=== PATIENT | female | born 1975 | race Two or more races ===

== ENCOUNTER 2018-07-11 11:16 | Inpatient (IN) | payer SELFPAY ==
[2018-07-11] MEDS ORDERED: NA CHLORIDE 0.9% 1,000 ML ONE (12:54)
[2018-07-11 13:10] LABS: Absolute Lymphocytes (CBC) 0.4 K/uL (0.7-4.9); Absolute Monocytes 0.9 K/uL (0.1-1.3); Absolute Neutrophil 10.4 K/uL (1.8-8.0); Basophils % 0.1 % (0-1.3); Hematocrit 39.2 % (36.0-45.0); Lymphocytes % 3.6 % (15.3-44.8); MPV 9.3 fL (7.6-11.3); Monocytes % 7.4 % (3.3-12.3); RBC Red Blood Cell Count 4.34 M/uL (3.86-4.86)
[2018-07-11 13:18] LABS: Urine Blood 2+ (NEG); Urine Glucose NEGATIVE (NEG); Urine Protein 1+ (NEG); Urine Specific Gravity 1.015 (1.005-1.030)
[2018-07-11 13:27] LABS: BUN Blood Urea Nitrogen 7 mg/dL (7-18); Bicarbonate 22 mmol/L (21-32); Glucose Level 101 mg/dL (74-106); Potassium 3.9 mmol/L (3.5-5.1); Sodium Level 137 mmol/L (136-145)
--- NOTE | 2018-07-11 14:26 | RAD REPORT ---
EXAM DESCRIPTION: CTAbdomen Pelvis W Contrast - 07/11/2018 2:15 pm CLINICAL HISTORY: Abdominal pain. iv contrast only;Abd pain COMPARISON: No comparisons TECHNIQUE: Biphasic CT imaging of the abdomen and pelvis was performed with 100 ml non-ionic IV cont rast. All CT scans are performed using dose optimization technique as appropriate and may include automated exposure control or mA/KV adjustment according to patient size. FINDINGS: The lung bases are clear. The liver, spleen, pancreas, adrenal glands and left kidney are within normal limits. The right kidne y is enlarged with multiple areas of diminished density in the cortex compatible with pyelonephritis. Mild perinephric fluid is seen without abscess. No bowel obstruction, free air, or abscess. Mild free fluid is seen in the pelvis. Appendectomy. No evidence of significant lymphadenopathy. No suspicious bony findings. IMPRESSION: Right pyelonephritis without abscess.
--- NOTE | 2018-07-11 14:43 | ER ---
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 Also c/o SOB and fever x 2 days, seen at urgent care yesterday, started on Augmentin. Transition of care: patient was not received from another setting of care. Onset of symptoms was July 11, 2018. Risk Assessment: Do you want to hurt yourself or someone else? Patient reports no desire to harm self or others. Care prior to arrival: None. 11:27 Method Of Arrival: Ambulatory 11:27 Acuity: TRAMAINE 3 12:45 Initial Sepsis Screen: Does the patient meet any 2 criteria? No. Patient's initial sg sepsis screen is negative. Does the patient have a suspected source of infection? Yes: Dysuria/Frequency/Urgency/UTI. Historical: - Allergies: 14:47 No Known Allergies; sg - Home Meds: 14:47 None [Active]; sg - PMHx: 14:47 None; sg - PSHx: 14:47 None; sg - Immunization history:: Adult Immunizations up to date. - Social history:: Smoking status: Patient/guardian denies using tobacco. - Ebola Screening: : No symptoms or risks identified at this time. Screenin:45 Abuse screen: Denies threats or abuse. Denies injuries from another. Nutritional sg screening: No deficits noted. Tuberculosis screening: No symptoms or risk factors identified. Never had TB. Fall Risk None identified. Assessment: 12:45 General: Appears in no apparent distress. well groomed, well developed, well nourished, sg Behavior is calm, cooperative, appropriate for age. Pain: Complains of pain in left mid back, right mid back and suprapubic area. Neuro: Level of Consciousness is awake, alert, obeys commands, Oriented to person, place, time, Brand Ambassador are equal bilaterally Moves all extremities. Full function Gait is steady, Speech is normal, Facial symmetry appears normal, Pupils are PERRLA. Cardiovascular: Capillary refill is brisk in bilateral fingers Patient's skin is warm and dry. Chest pain is denied. Respiratory: Airway is patent Respiratory effort is even, unlabored, Respiratory pattern is regular, symmetrical. GI: No signs and/or symptoms were reported involving the gastrointestinal system. : No signs and/or symptoms were reported regarding the genitourinary system. EENT: No signs and/or symptoms were reported regarding the EENT system. Derm: Skin is pink, warm \T\ dry. Musculoskeletal: No signs and/or symptoms reported regarding the musculoskeletal system. 13:40 Reassessment: Patient appears in no apparent distress at this time. Patient and/or sg family updated on plan of care and expected duration. Pain level reassessed. Patient is alert, oriented x 3, equal unlabored respirations, skin warm/dry/pink. 14:58 Reassessment: Patient appears in no apparent distress at this time. Patient and/or sg family updated on plan of care and expected duration. Pain level reassessed. Patient is alert, oriented x 3, equal unlabored respirations, skin warm/dry/pink. Vital Signs: 11:29 BP 91 / 80; Pulse 116; Resp 20; Temp 98.9; Pulse Ox 100% on R/A; Pain 6/10; hb 14:57 BP 97 / 69; Pulse 80; Resp 17; Temp 98.5; Pulse Ox 99% on R/A; Pain 6/10; sg 15:18 BP 101 / 70; Pulse 85; Resp 17; Pulse Ox 100% ; sg ED Course: 11:21 Patient arrived in ED. mr 11:29 Triage completed. hb 11:30 Arm band placed on. hb 12:09 Colette Armstrong FNP-C is PHCP. kb 12:09 Martin Arana MD is Attending Physician. kb 12:38 Babs Blount, DIONE is Primary Nurse. tw2 12:52 Initial lab(s) drawn, by me, sent to lab. Inserted saline lock: 22 gauge in left sg antecubital area, using aseptic technique. Blood collected. 13:00 Gautam Peraza, RN is Primary Nurse. sg 13:00 Patient has correct armband on for positive identification. Placed in gown. Bed in low sg position. Pulse ox on. NIBP on. 14:14 CT Abd/Pelvis - W/Contrast In Process Unspecified. EDMS 14:14 CT completed. Patient tolerated procedure well. Patient moved back from CT. vr 14:39 Timmy Ko MD is Hospitalizing Provider. kb 15:53 No provider procedures requiring assistance completed. Patient admitted, IV remains in sg place. intact, bleeding controlled, No redness/swelling at site. Pressure dressing applied. Administered Medications: 13:00 Drug: NS 0.9% 1000 ml Route: IV; Rate: 1000 ml; Site: left antecubital; sg 14:00 Follow up: Response: No adverse reaction; IV Status: Completed infusion; IV Intake: sg 1000ml 15:10 Drug: Rocephin 1 grams Route: IV; Rate: calculated rate; Site: left antecubital; sg 15:13 CANCELLED (Duplicate Order): Rocephin 1 grams IV at calculated rate once; Given slow IV sg push per pharmacy instructions Intake: 14:00 IV: 1000ml; Total: 1000ml. sg Outcome: 14:43 Decision to Hospitalize by Provider. kb 16:00 Admitted to Med/surg accompanied by tech, family with patient, via wheelchair, room sg 412, with chart, Report called to DIONE Wong 16:00 Condition: stable 16:00 Instructed on discharge instructions, the need for admit, safety practices, Demonstrated understanding of instructions. 16:29 Patient left the ED. sg Signatures: Dispatcher [employer] EDCT Colette Armstrong, GAS PUMPER-C GAS PUMPER-Gautam Greenberg RN RN Ward, Janett mr LorenzoJanee Elisabet Conley RN RN Babs Blount RN RN tw2 Corrections: (The following items were deleted from the chart) 11:30 11:29 BP 91 / 80; Pulse 116bpm; Resp 20bpm; Pulse Ox 100% RA; Temp 98.9F; Pain 3/10; hb hb 14:47 11:30 Allergies: No Known Allergies; hb sg
--- NOTE | 2018-07-11 14:43 | EDPHYS ---
Physician Documentation [facility] Name: Lizy George Age: 43 yrs Sex: Female : 1975 Arrival Date: 07/11/2018 Time: 11:21 Bed 16 Private MD: ED Physician Martin Arana HPI: 07/11 12:56 This 43 yrs old Black Female presents to ER via Ambulatory with complaints of Fever, kb Urinary Problem. 12:56 The patient presents with flank pain, on the right, urinary symptoms, dysuria. Onset: kb The symptoms/episode began/occurred 11 day(s) ago. Modifying factors: The symptoms are alleviated by nothing, the symptoms are aggravated by urinating. Associated signs and symptoms: Pertinent positives: dysuria, fever. Severity of symptoms: At their worst the symptoms were moderate, in the emergency department the symptoms are unchanged. The patient has not experienced similar symptoms in the past. The patient has not recently seen a physician. Pt reports she started having a bladder infection on 06/30, went to clinic on 07/04 and was given bactrim. STarted running fever and having chills, was not feeling any better so she went back to clinic yesterday and was given Augmentin. States she threw up the Augmentin today so she was concerned that she was taking too many medications. STates she takes other medication for GERD and ulcers so she doesn't know if she should be taking antibiotic pills on top of it. Came in because she thinks she needs IV antibiotics since she threw up the pills. States she has also been having intermittent pain to right flank.. Historical: - Allergies: 14:47 No Known Allergies; sg - Home Meds: 14:47 None [Active]; sg - PMHx: 14:47 None; sg - PSHx: 14:47 None; sg - Immunization history:: Adult Immunizations up to date. - Social history:: Smoking status: Patient/guardian denies using tobacco. - Ebola Screening: : No symptoms or risks identified at this time. ROS: 12:55 ENT: Negative for injury, pain, and discharge, Neck: Negative for injury, pain, and kb swelling, Cardiovascular: Negative for chest pain, palpitations, and edema, Respiratory: Negative for shortness of breath, cough, wheezing, and pleuritic chest pain, Abdomen/GI: Negative for abdominal pain, nausea, vomiting, diarrhea, and constipation, MS/Extremity: Negative for injury and deformity, Skin: Negative for injury, rash, and discoloration, Neuro: Negative for headache, weakness, numbness, tingling, and seizure. 12:55 Constitutional: Positive for chills, fever, Negative for body aches, fatigue, malaise, poor PO intake, weight loss. 12:55 : Positive for urinary symptoms, flank pain, burning with urination. Exam: 12:55 Constitutional: This is a well developed, well nourished patient who is awake, alert, kb and in no acute distress. Head/Face: Normocephalic, atraumatic. ENT: Nares patent. No nasal discharge, no septal abnormalities noted. Tympanic membranes are normal and external auditory canals are clear. Oropharynx with no redness, swelling, or masses, exudates, or evidence of obstruction, uvula midline. Mucous membranes moist. Neck: Trachea midline, no thyromegaly or masses palpated, and no cervical lymphadenopathy. Supple, full range of motion without nuchal rigidity, or vertebral point tenderness. No Meningismus. Chest/axilla: Normal chest wall appearance and motion. Nontender with no deformity. No lesions are appreciated. Cardiovascular: Regular rate and rhythm with a normal S1 and S2. No gallops, murmurs, or rubs. Normal PMI, no JVD. No pulse deficits. Respiratory: Lungs have equal breath sounds bilaterally, clear to auscultation and percussion. No rales, rhonchi or wheezes noted. No increased work of breathing, no retractions or nasal flaring. Abdomen/GI: Soft, non-tender, with normal bowel sounds. No distension or tympany. No guarding or rebound. No evidence of tenderness throughout. Skin: Warm, dry with normal turgor. Normal color with no rashes, no lesions, and no evidence of cellulitis. MS/ Extremity: Pulses equal, no cyanosis. Neurovascular intact. Full, normal range of motion. Neuro: Awake and alert, GCS 15, oriented to person, place, time, and situation. Cranial nerves II-XII grossly intact. Motor strength 5/5 in all extremities. Sensory grossly intact. Cerebellar exam normal. Normal gait. 14:34 Back: CVA tenderness, that is moderate, is noted on the right. kb Vital Signs: 11:29 BP 91 / 80; Pulse 116; Resp 20; Temp 98.9; Pulse Ox 100% on R/A; Pain 6/10; hb 14:57 BP 97 / 69; Pulse 80; Resp 17; Temp 98.5; Pulse Ox 99% on R/A; Pain 6/10; sg 15:18 BP 101 / 70; Pulse 85; Resp 17; Pulse Ox 100% ; sg MDM: 12:12 Patient medically screened. 12:56 Data reviewed: vital signs, nurses notes. Data interpreted: Pulse oximetry: on room air kb is 100 %. Interpretation: normal. 14:34 Counseling: I had a detailed discussion with the patient and/or guardian regarding: the kb historical points, exam findings, and any diagnostic results supporting the discharge/admit diagnosis, lab results, radiology results, the need for further work-up and treatment in the hospital. 14:38 Physician consultation: Timmy Ko MD was contacted at 14:38, regarding admission, to the medical/surgical unit. patient's condition, and will see patient in ED, shortly. 07/11 12:29 Order name: Urine Dipstick--Ancillary (enter results); Complete Time: 13:20 em1 07/11 12:29 Order name: Urine --Ancillary (enter results); Complete Time: 13:20 em1 07/11 12:31 Order name: CBC with Diff; Complete Time: 13:12 kb 07/11 12:31 Order name: Basic Metabolic Panel; Complete Time: 13:31 07/11 12:31 Order name: Urine Culture 07/11 13:32 Order name: CT Abd/Pelvis - W/Contrast; Complete Time: 14:29 kb 07/11 12:29 Order name: Urine Dipstick-Ancillary (obtain specimen); Complete Time: 12:30 em1 07/11 12:29 Order name: Urine Test (obtain specimen); Complete Time: 12:29 em1 Administered Medications: 13:00 Drug: NS 0.9% 1000 ml Route: IV; Rate: 1000 ml; Site: left antecubital; sg 14:00 Follow up: Response: No adverse reaction; IV Status: Completed infusion; IV Intake: sg 1000ml 15:10 Drug: Rocephin 1 grams Route: IV; Rate: calculated rate; Site: left antecubital; sg 15:13 CANCELLED (Duplicate Order): Rocephin 1 grams IV at calculated rate once; Given slow IV sg push per pharmacy instructions Disposition: 07/12 06:35 Co-signature as Attending Physician, Martin Arana MD I agree with the assessment and kdr plan of care. Disposition: 07/11/18 14:43 Hospitalization ordered by Timmy Ko for Inpatient Admission. Preliminary diagnosis is Tubulo-interstitial nephritis, not specified as acute or chronic - failed outpatient therapy . - Bed requested for Telemetry/MedSurg (Inpatient). - Status is Inpatient Admission. sg - Condition is Stable. - Problem is new. - Symptoms are unchanged. UTI on Admission? Yes Signatures: Dispatcher [employer] EDMS Colette Armstrong FNP-C FNP-Gautam Greenberg RN RN Martin Moctezuma MD MD kdr Martinez, Eric 1 Elisabet Conley RN RN Corrections: (The following items were deleted from the chart) 07/11 14:34 12:55 Constitutional: This is a well developed, well nourished patient who is awake, kb alert, and in no acute distress. Head/Face: Normocephalic, atraumatic. ENT: Nares patent. No nasal discharge, no septal abnormalities noted. Tympanic membranes are normal and external auditory canals are clear. Oropharynx with no redness, swelling, or masses, exudates, or evidence of obstruction, uvula midline. Mucous membranes moist. Neck: Trachea midline, no thyromegaly or masses palpated, and no cervical lymphadenopathy. Supple, full range of motion without nuchal rigidity, or vertebral point tenderness. No Meningismus. Chest/axilla: Normal chest wall appearance and motion. Nontender with no deformity. No lesions are appreciated. Cardiovascular: Regular rate and rhythm with a normal S1 and S2. No gallops, murmurs, or rubs. Normal PMI, no JVD. No pulse deficits. Respiratory: Lungs have equal breath sounds bilaterally, clear to auscultation and percussion. No rales, rhonchi or wheezes noted. No increased work of breathing, no retractions or nasal flaring. Abdomen/GI: Soft, non-tender, with normal bowel sounds. No distension or tympany. No guarding or rebound. No evidence of tenderness throughout. Skin: Warm, dry with normal turgor. Normal color with no rashes, no lesions, and no evidence of cellulitis. MS/ Extremity: Pulses equal, no cyanosis. Neurovascular intact. Full, normal range of motion. Neuro: Awake and alert, GCS 15, oriented to person, place, time, and situation. Cranial nerves II-XII grossly intact. Motor strength 5/5 in all extremities. Sensory grossly intact. Cerebellar exam normal. Normal gait. kb 14:38 14:34 Physician consultation: Cassie Mckinnon MD was contacted at 14:34, regarding kb admission, to the medical/surgical unit. patient's condition, and will see patient in ED, shortly, kb 14:47 11:30 Allergies: No Known Allergies; hb sg 15:13 15:12 Rocephin 1 grams IV at calculated rate once; Given slow IV push per pharmacy sg instructions ordered. sg 15:35 14:43 Hospitalization Ordered by Timmy Ko MD for Inpatient Admission. Preliminary em1 diagnosis is Tubulo-interstitial nephritis, not specified as acute or chronic - failed outpatient therapy . Bed requested for Telemetry/MedSurg (Inpatient). Status is Inpatient Admission. Condition is Stable. Problem is new. Symptoms are unchanged. UTI on Admission? Yes. kb 16:29 15:35 07/11/2018 14:43 Hospitalization Ordered by Timmy Ko MD for Inpatient sg Admission. Preliminary diagnosis is Tubulo-interstitial nephritis, not specified as acute or chronic - failed outpatient therapy . Bed requested for Telemetry/MedSurg (Inpatient). Status is Inpatient Admission. Condition is Stable. Problem is new. Symptoms are unchanged. UTI on Admission? Yes. em1
[2018-07-11] MEDS ORDERED: CEFTRIAXONE/SWI 1gm 1 GM/10 ML SYR ONE (15:14)
--- NOTE | 2018-07-11 17:28 | P.HP ---
Certification for Inpatient Patient admitted to: Inpatient Practitioner: I am a practitioner with admitting privileges, knowledge of patient current condition, hospital course, and medical plan of care. Services: Services provided to patient in accordance with Admission requirements found in Title 42 Section 412.3 of the Code of Federal Regulations Patient History Date of Service: 07/11/18 Reason for admission: Dysuria, right flank pain History of Present Illness: This is a 43-year-old healthy female admitted for right flank pain and dysuria. Per patient, symptoms of dysuria and right flank pain started about 11 days ago. She went to the clinic and received a course of Bactrim. Her symptoms seemed to have progressively worsened, she returned to the clinic and was started on Augmentin. Per patient, symptoms were still worsening and she started with vomiting, which is what brought her to the ER. She has been having right flank pain, dysurea, fevers and chills. Patient also has a vague history of a stomach ulcer and gastroesophageal reflux disease for which she takes Ranatidine, Mosapulin, and Famotidine as she needs it. In the ER, she was found to have right pyelonephritis on CT scan. She remained hemodynamically stable. At the time of my exam, she was alert oriented x3, in no acute distress and hemodynamically stable. She will be admitted for IV antibiotics failed outpatient treatment Allergies No Known Allergies Allergy (Unverified 07/11/18 17:03) Review of Systems 10-point ROS is otherwise unremarkable Physical Examination - Vital Signs Temperature: 98.5 F Blood Pressure: 101/70 Pulse: 85 Respirations: 17 - Physical Exam General: Alert, In no apparent distress, Oriented x3 HEENT: Atraumatic, PERRLA, Mucous membr. moist/pink, EOMI, Sclerae nonicteric Neck: Supple, 2+ carotid pulse no bruit, No LAD, Without JVD or thyroid abnormality Respiratory: Clear to auscultation bilaterally, Normal air movement Cardiovascular: Regular rate/rhythm, Normal S1 S2 Gastrointestinal: Normal bowel sounds, No tenderness Musculoskeletal: Tenderness, Other (Right CVA tenderness) Integumentary: No rashes Neurological: Normal gait, Normal speech, Normal strength at 5/5 x4 extr, Normal tone, Normal affect Lymphatics: No axilla or inguinal lymphadenopathy - Studies Laboratory Data (last 24 hrs) 07/11/18 12:50: Sodium 137, Potassium 3.9, BUN 7, Creatinine 0.72, Glucose 101 07/11/18 12:50: WBC 11.7 H, Hgb 12.9, Hct 39.2, Plt Count 123 L Assessment and Plan - Problems (Diagnosis) (1) Pyelonephritis Current Visit: Yes Status: Acute (2) Urinary tract infection Current Visit: Yes Status: Acute Qualifiers: Urinary tract infection type: acute pyelonephritis Qualified Code(s): N10 - Acute pyelonephritis (3) Leukocytosis Current Visit: Yes Status: Acute Qualifiers: Leukocytosis type: unspecified Qualified Code(s): D72.829 - Elevated white blood cell count, unspecified (4) Gastroesophageal reflux Current Visit: Yes Status: Chronic Qualifiers: Esophagitis presence: esophagitis presence not specified Qualified Code(s) : K21.9 - Gastro-esophageal reflux disease without esophagitis - Plan Patient Problems: Pyelonephritis (Acute) N12 Urinary tract infection (Acute) N39.0 Failed outpatient treatment Leukocytosis (Acute) D72.829 Gastroesophageal reflux (Chronic) K21.9 Patient admitted for her pyelonephritis. We will start IV fluids, IV antibiotics with Rocephin and pain control with IV morphine as needed. We will follow up on urine cultures and adjust antibiotics as needed. We will continue to monitor via a.m. labs DVT prophylaxis: Lovenox GI prophylaxis: Home medications, once reconciled Diet: Regular Disposition: Admit to the floor. Pending symptomatic improvement - Advance Directives Does patient have a Living Will: No Does patient have a Durable POA for Healthcare: No
[2018-07-11 18:32] VITALS: BMI 18.3
[2018-07-11] MEDS: ENOXAPARIN 40 MG/0.4 ML SQ SCH (18:33)
[2018-07-11] MEDS: NA CHLORIDE 0.9% 1,000 ML IV SCH (18:34)
[2018-07-11] MEDS ORDERED: ACETAMINOPHEN 325 MG TABLET PO PRN (18:57)
[2018-07-11] MEDS: ACETAMINOPHEN 500 MG TAB PO PRN (20:01)
[2018-07-11] MEDS: CEFTRIAXONE/SWI 1gm 1 GM/10 ML SYR IVP SCH (20:02)
[2018-07-12] MEDS: NA CHLORIDE 0.9% 1,000 ML IV SCH ×2 (02:24→14:41)
[2018-07-12 04:25] LABS: Absolute Monocytes 0.6 K/uL (0.1-1.3); Absolute Neutrophil 5.1 K/uL (1.8-8.0); Basophils % 0.2 % (0-1.3); Eosinophils % 0.4 % (0-4.4); Hematocrit 32.3 % (36.0-45.0); Lymphocytes % 15.4 % (15.3-44.8); MPV 9.4 fL (7.6-11.3); Monocytes % 8.8 % (3.3-12.3); RBC Red Blood Cell Count 3.65 M/uL (3.86-4.86)
[2018-07-12 04:42] LABS: ALT/SGPT 64 U/L (12-78); AST/SGOT 26 U/L (15-37); Albumin 2.5 g/dL (3.4-5.0); Alkaline Phosphatase 84 U/L (45-117); BUN Blood Urea Nitrogen 8 mg/dL (7-18); Bicarbonate 21 mmol/L (21-32); Bilirubin Total 0.2 mg/dL (0.2-1.0); Glucose Level 113 mg/dL (74-106); Potassium 3.8 mmol/L (3.5-5.1); Protein, Total 6.1 g/dL (6.4-8.2); Sodium Level 142 mmol/L (136-145)
[2018-07-12] MEDS ORDERED: POTASSIUM 25 MEQ EFFERV TAB PO ONE (07:30)
[2018-07-12] MEDS: ENOXAPARIN 40 MG/0.4 ML SQ SCH (08:40)
[2018-07-12] MEDS: CEFTRIAXONE/SWI 1gm 1 GM/10 ML SYR IVP SCH ×2 (08:41→21:03)
[2018-07-12] MEDS: ACETAMINOPHEN 500 MG TAB PO PRN (14:45)
--- NOTE | 2018-07-12 18:06 | P.PN ---
Subjective Date of Service: 07/12/18 Chief Complaint: Dysuria, right flank pain Subjective: Improving Patient seen and examined at bedside. No family at bedside. Chart reviewed and case discussed with nursing staff. Reports much improved left flank pain. Dysuria is also improved. Ambulating without any concerns. T-max 100.7 at 6:00 p.m. last night. Afebrile overnight, no acute events noted overnight Review of Systems 10-point ROS is otherwise unremarkable Physical Examination - Vital Signs Temperature: 99.0 F Blood Pressure: 99/55 Pulse: 82 Respirations: 16 Pulse Ox (%): 98 - Physical Exam General: Alert, In no apparent distress, Oriented x3 HEENT: Atraumatic, PERRLA, EOMI Neck: Supple, JVD not distended Respiratory: Clear to auscultation bilaterally, Normal air movement Cardiovascular: Regular rate/rhythm, Normal S1 S2 Gastrointestinal: Normal bowel sounds, No tenderness Musculoskeletal: No tenderness Integumentary: No rashes Neurological: Normal speech, Normal tone, Normal affect Lymphatics: No axilla or inguinal lymphadenopathy Assessment And Plan - Current Problems (Diagnosis) (1) Pyelonephritis Current Visit: Yes Status: Acute (2) Urinary tract infection Current Visit: Yes Status: Acute Qualifiers: Urinary tract infection type: acute pyelonephritis Qualified Code(s): N10 - Acute pyelonephritis (3) Leukocytosis Current Visit: Yes Status: Acute Qualifiers: Leukocytosis type: unspecified Qualified Code(s): D72.829 - Elevated white blood cell count, unspecified (4) Gastroesophageal reflux Current Visit: Yes Status: Chronic Qualifiers: Esophagitis presence: esophagitis presence not specified Qualified Code(s) : K21.9 - Gastro-esophageal reflux disease without esophagitis - Plan Continue IV fluids, IV antibiotics with Rocephin. Pain control with IV morphine as needed Follow up urine cultures Leukocytosis now resolved DVT prophylaxis: Lovenox GI prophylaxis: Home medications, once reconciled Diet: Regular Disposition: Pending symptomatic improvement. Likely discharge home in the next 24-48 hr
[2018-07-13 06:47] LABS: BUN Blood Urea Nitrogen 5 mg/dL (7-18); Bicarbonate 22 mmol/L (21-32); Glucose Level 97 mg/dL (74-106); Phosphorus 3.1 mg/dL (2.5-4.9); Potassium 3.8 mmol/L (3.5-5.1); Sodium Level 142 mmol/L (136-145)
[2018-07-13 07:31] VITALS: O2SAT 96
[2018-07-13] MEDS ORDERED: POTASSIUM CL SA 10 MEQ TAB PO ONE (07:33)
[2018-07-13] MEDS: CEFTRIAXONE/SWI 1gm 1 GM/10 ML SYR IVP SCH (08:23)
[2018-07-13] MEDS: ENOXAPARIN 40 MG/0.4 ML SQ SCH (08:24)
[2018-07-13] MEDS: NA CHLORIDE 0.9% 1,000 ML IV SCH ×2 (09:43)
--- NOTE | 2018-07-13 12:37 | P.DS ---
Admission Date: 07/11/18 Discharge Date: 07/13/18 Disposition: ROUTINE DISCHARGE Discharge Condition: GOOD Reason for Admission: Dysuria, right flank pain - Problems (1) Pyelonephritis Current Visit: Yes Status: Acute (2) Urinary tract infection Current Visit: Yes Status: Acute Qualifiers: Urinary tract infection type: acute pyelonephritis Qualified Code(s): N10 - Acute pyelonephritis (3) Leukocytosis Current Visit: Yes Status: Acute Qualifiers: Leukocytosis type: unspecified Qualified Code(s): D72.829 - Elevated white blood cell count, unspecified (4) Gastroesophageal reflux Current Visit: Yes Status: Chronic Qualifiers: Esophagitis presence: esophagitis presence not specified Qualified Code(s) : K21.9 - Gastro-esophageal reflux disease without esophagitis Brief History of Present Illness: This is a 43-year-old healthy female admitted for right flank pain and dysuria. Per patient, symptoms of dysuria and right flank pain started about 11 days ago. She went to the clinic and received a course of Bactrim. Her symptoms seemed to have progressively worsened, she returned to the clinic and was started on Augmentin. Per patient, symptoms were still worsening and she started with vomiting, which is what brought her to the ER. She has been having right flank pain, dysurea, fevers and chills. Patient also has a vague history of a stomach ulcer and gastroesophageal reflux disease for which she takes Ranatidine, Mosapulin, and Famotidine as she needs it. In the ER, she was found to have right pyelonephritis on CT scan. She remained hemodynamically stable. At the time of my exam, she was alert oriented x3, in no acute distress and hemodynamically stable. She will be admitted for IV antibiotics failed outpatient treatment Hospital Course: Patient was admitted for pyelonephritis. She was started on IVF, IV rocephin. Her fever curve improved and she did not require any pain medications. her urine culture did not grow anything. This was likely because patient had 2 courses of antibiotics as an outpatient prior to this admission. Her leukocytosis resovled. She did have some diarrhea after starting antibiotics but resovled prior to discharge. She denies any abdominal pain, nausea/ vomiting. At the time of discharge, patient was hemodynamically stable, AAOx3 and all her symptoms had resolved, including dysuria, flank pain. She was afebrile for more than 24 hrs. She was discharged home on Keflex. Vital Signs/Physical Exam: Temp Pulse Resp BP Pulse Ox 98.4 F 69 16 103/57 L 99 07/13/18 08:00 07/13/18 08:00 07/13/18 08:00 07/13/18 08:00 07/13/18 08:00 General: Alert, In no apparent distress, Oriented x3 HEENT: Atraumatic, PERRLA, EOMI Neck: Supple, JVD not distended Respiratory: Clear to auscultation bilaterally, Normal air movement Cardiovascular: Regular rate/rhythm, Normal S1 S2 Gastrointestinal: Normal bowel sounds, No tenderness Musculoskeletal: No tenderness Integumentary: No rashes Neurological: Normal speech, Normal tone, Normal affect Lymphatics: No axilla or inguinal lymphadenopathy Laboratory Data at Discharge: WBC 6.7 K/uL (4.3-10.9) D 07/12/18 04:12 Hgb 11.1 g/dL (12.0-15.0) L 07/12/18 04:12 Hct 32.3 % (36.0-45.0) L D 07/12/18 04:12 Plt Count 118 K/uL (152-406) L 07/12/18 04:12 Sodium 142 mmol/L (136-145) 07/13/18 06:12 Potassium 3.8 mmol/L (3.5-5.1) 07/13/18 06:12 BUN 5 mg/dL (7-18) L 07/13/18 06:12 Creatinine 0.42 mg/dL (0.55-1.3) L 07/13/18 06:12 Glucose 97 mg/dL (74-106) 07/13/18 06:12 Phosphorus 3.1 mg/dL (2.5-4.9) 07/13/18 06:12 Magnesium 2.0 mg/dL (1.8-2.4) 07/13/18 06:12 Total Bilirubin 0.2 mg/dL (0.2-1.0) 07/12/18 04:12 AST 26 U/L (15-37) 07/12/18 04:12 ALT 64 U/L (12-78) 07/12/18 04:12 Alkaline Phosphatase 84 U/L (45-117) 07/12/18 04:12 Home Medications: Acetaminophen [Tylenol Extra Strength] 2 tab PO Q4H PRN 07/11/18 Cranberry 1 tab PO DAILY 07/11/18 Famotidine [Pepcid*] 20 mg PO DAILY 07/11/18 Ranitidine [Zantac*] 150 mg PO DAILY 07/11/18 Vitamin B Complex [B Complex] 1 tab PO DAILY 07/11/18 Cephalexin [Keflex] 500 mg PO Q12HR #8 cap 07/13/18 New Medications: Cephalexin [Keflex] 500 mg PO Q12HR #8 cap Patient Discharge Instructions: Follow up with the primary care physician in 1 week. Please return to the emergency room for worsening symptoms Diet: Regular Activity: Ad tano Time spent managing pt's care (in minutes): 55
[2018-07-13 12:38] VITALS: BP 105/68; TEMP 98.5
== END 2018-07-13 14:50 | disposition home or self-care (01) | DRG 690 ==
LOC: ER 11:16 → ERHOLD 15:19 → 4TH 15:54
PROVIDERS: ADMIT Family Medicine; ATTEND Family Medicine
DX: N10 Acute pyelonephritis (principal); D72.829 Elevated white blood cell count, unspecified; R19.7 Diarrhea, unspecified; K21.9 Gastro-esophageal reflux disease without esophagitis
CPT/HCPCS: 36415; 74177; 80048; 80053; 81003; 81025; 83735; 84100; 85025; 87086; 87088; 87493; 94760; 96361; 96374; 99285; J0696; J1650; J7030; Q9967

== ENCOUNTER 2020-02-23 19:05 | Emergency (ER) | payer SELFPAY ==
--- OUTSIDE RECORDS SUMMARY | 2020-02-23 19:07 | XMS REPORT | Encounter Summary ---
:1975 Author Reason for Visit rash Instructions 1. Contact dermatitis triamcinolone acetonide 0. 1 % topical cream prednisone 20 mg tablet 2. Exposure to scabies permethrin 5 % topical cre am 3. Body mass index 20-24 - mita l Discussion Note: None recorded.Patient educational handouts: No information available. Plan of Care Reminders Provider Appointments None recorded. Lab None recorded. Referral None recorded. Procedures None recorded. Surgeries None recorded. Imaging None recorded. Medications Name Start Date Benadryl 1 qd hydroxyzine HCl 25 mg tablet take 1 or 2 tabs po qhs prn itching permethrin 5 % topical cream APPLY (THOROUGHLY MASSAGE INTO SKIN FRO M HEAD TO SOLES OF FEET) BY TOPICAL ROUTE ONCE LEAVE ON FOR 8-14 HR, THEN REMOVE BY THOROUGH WASHING prednisone 20 mg tablet Take 2 tablets every day by oral route with meals for 6 days. triamcinolone acetonide 0.1 % topical cream APPLY A THIN LAYER TO THE AFFECTED AREA (S) BY TOPICAL ROUTE 2-3 TIMES PER DAY prn itching/rash Medications Administered None recorded. Vitals Height Weight BMI Blood Pressure 5 ft 4.5 in 125 lbs 21.1 kg/m2 110/80 mm[Hg] Results Lab Results None recorded. Allergies Code Code System Name Reaction Severity Status Onset NKDA Problems Name Status Onset Date Source Contact Dermatitis Active 01/26/2020 Procedures Date Name Performed by 05/15/2017 Appendectomy Information not avai lable Vaccine List None recorded. Social History Tobacco Smoking Status Never Smoker Past Encounters 01/22/2020 Contact Dermatitis; Exposure to Scabies; Body Mass Index 20-24 - Normal Georgette Constantino MD: [id number] [facility], [address], [place] [address], Ph. History of Present Illness Note: Per pt, rash all over x 1 week<div>per pt, changed body soap around the same time rash appeared</div><div>very itchy</div><div>otc meds have not helped</div><div>no fever/malaise</div><div>no travel/hotel stay/fdc contact</div>Review of Systems: ROS as noted in the HPI Review of Systems None recorded. Physical Exam General Adult Exam (Female) Reported By: Patient Constitutional: General Appearance: healthy- appearing, well-nourished, well-developed. Level of Dis tress: NAD. Ambulation: ambulating normally Psychiatric: Mental Status: active and al ert, normal mood, normal affect. Memory: recent memory normal Head: Head: normocephalic, atrauma tic Lungs: Respiratory effort: no dyspn ea Neurologic: Gait and Station: normal gai t, normal station Skin: Inspection and palpation: go od turgor, no jaundice, rash; numerous, scattered excoriated erythem atous papules, and 3 lichenified 3 to [id number] light brown patches trunk and extremities
--- OUTSIDE RECORDS SUMMARY | 2020-02-23 19:07 | XMS REPORT | Continuity of Care Document ---
:1975 Author Organization [facility] Address [address] [place] [address] Care Team Providers Name Role Phone Unavailable Unavailable Unavailable Problems Condition Condition Condition Status Onset Resolution Last Treating Co mments Source Name Details Category Date Date Treatment Clinician Date Contact Contact Problem Active [facility] dermatitis Dermatitis 9-13 Fa merlin 00:00: Practic 00 e Allergies, Adverse Reactions, Alerts This patient has no known allergies or adverse reactions. Social History Smoking Status Start Date Stop Date Source Never Smoker [facility] Medications Ordered Filled Start Stop Current Ordering Indication Dosage Frequency Signature Comments Components Source Medication Medication Date Date Medication? Clinician (SIG) Name Name Benadryl 1 Benadryl 1 No Benadryl 1 [facility] qd qd qd Family Practic e hydroxyzine hydroxyzine No hydroxyzin [facility] HCl 25 mg HCl 25 mg e HCl 25 F amily tablet take tablet take mg tablet Practic 1 or 2 tabs 1 or 2 tabs take 1 or e po qhs prn po qhs prn 2 tabs po itching itching qhs prn itching permethrin permethrin No permethrin [facility] 5 % topical 5 % topical 5 % F amily cream APPLY cream APPLY topical Practic (THOROUGHLY (THOROUGHLY cream e MASSAGE MASSAGE APPLY INTO SKIN INTO SKIN (THOROUGHL FROM HEAD FROM HEAD Y MASSAGE TO SOLES OF TO SOLES OF INTO SKIN FEET) BY FEET) BY FROM HEAD TOPICAL TOPICAL TO SOLES ROUTE ONCE ROUTE ONCE OF FEET) LEAVE ON LEAVE ON BY TOPICAL FOR 8-14 FOR 8-14 ROUTE ONCE HR, THEN HR, THEN LEAVE ON REMOVE BY REMOVE BY FOR 8-14 THOROUGH THOROUGH HR, THEN WASHING WASHING REMOVE BY THOROUGH WASHING prednisone prednisone No 2 Q1D prednisone [facility] 20 mg 20 mg 20 mg Family tablet Take tablet Take tablet Practic 2 tablets 2 tablets Take 2 e every day every day tablets by oral by oral every day route with route with by oral meals for 6 meals for 6 route with days. days. meals for 6 days. triamcinolo triamcinolo No triamcinol [facility] ne ne one Family acetonide acetonide acetonide Practic 0.1 % 0.1 % 0.1 % e topical topical topical cream APPLY cream APPLY cream A THIN A THIN APPLY A LAYER TO LAYER TO THIN LAYER THE THE TO THE AFFECTED AFFECTED AFFECTED AREA(S) BY AREA(S) BY AREA(S) BY TOPICAL TOPICAL TOPICAL ROUTE 2-3 ROUTE 2-3 ROUTE 2-3 TIMES PER TIMES PER TIMES PER DAY prn DAY prn DAY prn itching/darryl itching/darryl itching/ra h h sh Vital Signs Vital Name Observation Time Observation Value Comments Source BP Diastolic 2020-01-22 00:00:00 80 mm[Hg] [facility] Height 2020-01-22 00:00:00 64.5 [in_i] [facility] BMI (Body Mass 2020-01-22 00:00:00 21.1 kg/m2 [facility] Family Index) Practice BP Systolic 2020-01-22 00:00:00 110 mm[Hg] [facility] Body Weight 2020-01-22 00:00:00 125 [lb_av] [facility] Procedures Procedure Date / Time Performed Performing Clinician Sour e Appendectomy 2017-05-15 00:00:00 [facility] Practice Encounters Start End Encounter Admission Attending Care Care Encounter Source Date/Time Date/Time Type Type Clinicians Facility Department ID 2020-01-22 2020-01-22 Georgette [facility] [place] - [id number] [facility] 00:00:00 00:00:[address] [facility] - Pract nakul BRITO: [email or web address] [facility], [address], [place] [address] , Ph. Results This patient has no known results.
--- NOTE | 2020-02-23 19:38 | ER ---
Nurse's Notes [facility] Name: Lizy George Age: 44 yrs Sex: Female : 1975 Arrival Date: 02/23/2020 Time: 19:08 Bed 20 Private MD: Diagnosis: Dermatitis, unspecified Presentation: 02/22 19:14 Chief complaint: Patient states: Rash, spreading since Jan.15. Has seen PCP and ll1 fur tailor. Burning pain throughout back area today. Coronavirus screen: Client denies travel out of the [place] in the last 14 days. At this time, the client does not indicate any symptoms associated with coronavirus-19. Ebola Screen: Patient denies travel to an Ebola-affected area in the 21 days before illness onset. Initial Sepsis Screen: Does the patient meet any 2 criteria? HR > 90 bpm. No. Patient's initial sepsis screen is negative. Does the patient have a suspected source of infection? Yes: Skin breakdown/wound. Risk Assessment: Do you want to hurt yourself or someone else? Patient reports no desire to harm self or others. Onset of symptoms was January 16, 2020. 19:14 Method Of Arrival: Ambulatory [facility] 19:14 Acuity: TRAMAINE 3 ll1 Historical: - Allergies: 19:17 No Known Allergies; ll1 - PSHx: 19:17 Appendectomy; ll1 - Immunization history:: Flu vaccine is not up to date. - Social history:: Smoking status: Patient denies any tobacco usage or history of. Screenin:55 Abuse screen: Denies threats or abuse. Nutritional screening: No deficits noted. ea Tuberculosis screening: No symptoms or risk factors identified. Fall Risk None identified. Assessment: 19:45 General: Appears uncomfortable, Behavior is appropriate for age. Pain: Denies pain. ea Neuro: Level of Consciousness is awake, alert, obeys commands, Oriented to person, place, time, situation. Cardiovascular: Patient's skin is warm and dry. Respiratory: Airway is patent Respiratory effort is even, unlabored, Respiratory pattern is regular, symmetrical. Derm: Rash noted that is itchy, on chest, abdomen, right arm, right hand, left arm, left hand, right leg, left leg, back of left arm, back of right arm, posterior chest, back of left leg, back of right leg and back. Vital Signs: 19:14 BP 127 / 93; Pulse 110; Resp 16; Temp 98.3; Pulse Ox 99% ; Weight 53 kg; Height 5 ft. 2 ll1 in. (160 cm); Pain 4/10; 19:55 BP 123 / 78; Pulse 90; Resp 18; Pulse Ox 98% ; ea 19:14 Body Mass Index 20.70 (53.00 kg, 160 cm) 1 ED Course: 19:08 Patient arrived in ED. mr 19:14 Federico Desir MD is Attending Physician. tw4 19:16 Triage completed. ll1 19:19 Arm band placed on Patient placed in an exam room, on a stretcher. ll1 19:55 Patient has correct armband on for positive identification. Placed in gown. Bed in low ea position. Call light in reach. 19:57 No provider procedures requiring assistance completed. Patient did not have IV access ea during this emergency room visit. Administered Medications: 19:50 Drug: SOLU-Medrol 125 mg Route: IM; Site: left deltoid; ea 19:57 Follow up: Response: No adverse reaction ea Outcome: 19:38 Discharge ordered by . tw4 19:57 Discharged to home ambulatory, with family. ea 19:57 Condition: stable 19:57 Discharge instructions given to patient, Instructed on discharge instructions, follow up and referral plans. Demonstrated understanding of instructions, follow-up care. 19:58 Patient left the ED. ea Signatures: Janett Hopper mr MittalKirstin, RN RN Federico Bain MD MD tw4 Gorge Beltrán RN RN 1 Corrections: (The following items were deleted from the chart) 19:19 19:14 Chief complaint: Patient states: Rash, spreading since Jan.15. Has seen PCP ll1 and fur tailor. 1 19:58 19:57 BP 123 / 78; Pulse 90bpm; Resp 18bpm; Pulse Ox 98%; ea ea
--- NOTE | 2020-02-23 19:38 | EDPHYS ---
Physician Documentation [facility] Name: Lizy George Age: 44 yrs Sex: Female : 1975 Arrival Date: 02/23/2020 Time: 19:08 Bed 20 Private MD: ED Physician Federico Desir HPI: 02/22 20:27 This 44 yrs old Female presents to ER via Ambulatory with complaints of Rash. tw4 20:27 The patient's rash thought to be caused by Dermatitis. The rash is located on the body tw4 diffusely. The rash can be described as papular, patchy. 20:27 Onset: The symptoms/episode began/occurred 2 month(s) ago. Severity of symptoms: At tw4 their worst the symptoms were moderate in the emergency department the symptoms are unchanged. The patient has not experienced similar symptoms in the past. Historical: - Allergies: 19:17 No Known Allergies; ll1 - PSHx: 19:17 Appendectomy; ll1 - Immunization history:: Flu vaccine is not up to date. - Social history:: Smoking status: Patient denies any tobacco usage or history of. ROS: 20:27 Constitutional: Negative for fever, chills, and weight loss, Eyes: Negative for injury, tw4 pain, redness, and discharge, Cardiovascular: Negative for chest pain, palpitations, and edema, Respiratory: Negative for shortness of breath, cough, wheezing, and pleuritic chest pain, Abdomen/GI: Negative for abdominal pain, nausea, vomiting, diarrhea, and constipation, Back: Negative for injury and pain. 20:27 Skin: Positive for rash. Exam: 20:27 Constitutional: This is a well developed, well nourished patient who is awake, alert, tw4 and in no acute distress. Head/Face: Normocephalic, atraumatic. Cardiovascular: Regular rate and rhythm with a normal S1 and S2. No gallops, murmurs, or rubs. Normal PMI, no JVD. No pulse deficits. Respiratory: Lungs have equal breath sounds bilaterally, clear to auscultation and percussion. No rales, rhonchi or wheezes noted. No increased work of breathing, no retractions or nasal flaring. Abdomen/GI: Soft, non-tender, with normal bowel sounds. No distension or tympany. No guarding or rebound. No evidence of tenderness throughout. Back: No spinal tenderness. No costovertebral tenderness. Full range of motion. Psych: Awake, alert, with orientation to person, place and time. Behavior, mood, and affect are within normal limits. 20:27 Skin: drug rash. Vital Signs: 19:14 BP 127 / 93; Pulse 110; Resp 16; Temp 98.3; Pulse Ox 99% ; Weight 53 kg; Height 5 ft. 2 ll1 in. (160 cm); Pain 4/10; 19:55 BP 123 / 78; Pulse 90; Resp 18; Pulse Ox 98% ; ea 19:14 Body Mass Index 20.70 (53.00 kg, 160 cm) ll1 MDM: 19:38 Patient medically screened. tw4 20:27 Data reviewed: vital signs, nurses notes. Data interpreted: Pulse oximetry: tw4 Interpretation: normal. Counseling: I had a detailed discussion with the patient and/or guardian regarding: the historical points, exam findings, and any diagnostic results supporting the discharge/admit diagnosis. ED course: Pt has seen a transaction processor and has had inconclusive results. PT has an appointment tomorrow and wants a second opinion.. Administered Medications: 19:50 Drug: SOLU-Medrol 125 mg Route: IM; Site: left deltoid; ea 19:57 Follow up: Response: No adverse reaction ea Disposition: 02/23/20 19:38 Discharged to Home. Impression: Dermatitis, unspecified. - Condition is Stable. - Discharge Instructions: Rash. - Medication Reconciliation Form, Thank You Letter, Antibiotic Education, Prescription Opioid Use form. - Follow up: Private Physician; When: Upon discharge from the Emergency Department; Reason: Recheck today's complaints, Continuance of care, Re-evaluation by your physician. - Problem is new. - Symptoms have improved. Signatures: Kirstin Mittal RN RN ea Federico Desir MD MD tw4 Gorge Beltrán RN RN ll1 Corrections: (The following items were deleted from the chart) 19:58 19:38 02/23/2020 19:38 Discharged to Home. Impression: Dermatitis, unspecified. ea Condition is Stable. Forms are Medication Reconciliation Form, Thank You Letter, Antibiotic Education, Prescription Opioid Use. Follow up: Private Physician; When: Upon discharge from the Emergency Department; Reason: Recheck today's complaints, Continuance of care, Re-evaluation by your physician. Problem is new. Symptoms have improved. tw4
[2020-02-23] MEDS ORDERED: METHYLPREDNISOLONE 125 MG INJ ONE (19:57)
[2020-02-23 20:15] VITALS: TEMP 98.3
[2020-02-23 20:18] VITALS: BP 123/78; O2SAT 98
== END 2020-02-23 19:58 | disposition home or self-care (01) ==
LOC: ER 19:05
DX: L30.9 Dermatitis, unspecified (principal)
CPT/HCPCS: 96372; 99283; J2930

== ENCOUNTER 2020-11-30 20:59 | Emergency (ER) | payer SELFPAY ==
--- OUTSIDE RECORDS SUMMARY | 2020-11-30 21:02 | XMS REPORT | Continuity of Care Document ---
:1975 Author Organization [facility] t Address [address] [place] [address] Care Team Providers Name Role Phone Unavailable Unavailable Unavailable Problems Condition Condition Condition Status Onset Resolution Last Treating Co mments Source Name Details Category Date Date Treatment Clinician Date Contact Contact Problem Active [facility] dermatitis Dermatitis 9-13 Fa merlin 00:00: Practic 00 e Adjustment Diagnosis Active 2020-09-22 Memoria insomnia 02:00:33 l [place] Adjustment insomnia Active Diagnosis 09/22/2020 [facility] Dermatitis Diagnosis Active 2020-09-19 Memoria 02:01:24 l [place] Dermatitis Active Diagnosis 09/19/2020 [facility] Allergies, Adverse Reactions, Alerts This patient has no known allergies or adverse reactions. Social History Smoking Status Start Date Stop Date Source Never Smoker [facility] Family P ractice Medications Ordered Filled Start Stop Current Ordering Indication Dosage Frequency Signature Comments Components Source Medication Medication Date Date Medication? Clinician (SIG) Name Name Zolpidem Yes Stephanie Quigley 1 tablet Me moria Tartrate 5-08 at bedtime l 02:01: Black 24 PrednisoLON Yes Stephanie Quigley 1 tablet Memoria E 5-08 in the l 02:01: morning Black 24 with food or milk Trazodone Yes Stephanie Quigley 1 tablet M emoria HCl 5-07 at bedtime l 00:00: as needed Black 00 prednisone prednisone No 2 Q1D prednisone [facility] 20 mg 20 mg 20 mg Family tablet Take tablet Take tablet Practic 2 tablets 2 tablets Take 2 e every day every day tablets by oral by oral every day route with route with by oral meals for 6 meals for 6 route with days. days. meals for 6 days. triamcinolo triamcinolo No triamcinol [facility] ne ne one Family acetonide acetonide acetonide [...] prn itching/darryl itching/darryl itching/ra h h sh Benadryl 1 Benadryl 1 No Benadryl 1 [facility] qd qd qd Family Practic e hydroxyzine hydroxyzine No hydroxyzin [facility] HCl 25 mg HCl 25 mg e HCl 25 F amily tablet take tablet take mg tablet Practic 1 or 2 tabs 1 or 2 tabs take 1 or e po qhs prn po qhs prn 2 tabs po itching itching qhs prn itching permethrin permethrin No permethrin [facility] 5 % topical 5 % topical 5 [...] THEN WASHING WASHING REMOVE BY THOROUGH WASHING Vital Signs Vital Name Observation Time Observation Value Comments Source BP Diastolic 2020-01-22 00:00:00 80 mm[Hg] [facility] Height 2020-01-22 00:00:00 64.5 [in_i] [facility] BMI (Body Mass 2020-01-22 00:00:00 21.1 kg/m2 [facility] Practice BP Systolic 2020-01-22 00:00:00 110 mm[Hg] [facility] Body Weight 2020-01-22 00:00:00 125 [lb_av] [facility] Heart Rate 2020-09-18 20:30:00 Hilda Sam Diastolic (mm Hg) 2020-09-18 20:30:00 Kian Sam Systolic (mm Hg) 2020-09-18 20:30:00 Bowen Sam Weight 2020-09-18 20:30:00 Hilda Sam Height 2020-09-18 20:30:00 [facility] Procedures Procedure Date / Time Performed Performing Clinician [facility] e Appendectomy 2017-05-15 00:00:00 [facility] Panchito ly Practice Encounters Start End Encounter Admission Attending Care Care Encounter Source Date/Time Date/Time Type Type Clinicians Facility Department ID 2020-09-19 2020-09-19 Outpatient Juan Rojas [id number] eClinic 09:17:00 09:17:00 [facility] 2020-09-19 2020-09-19 Outpatient Juan Martinez Family [id number] eClinic 09:12:00 09:12:00 [facility] s Urgent [facility] Care [facility] 2020-09-18 2020-09-18 Outpatient Juan Martinez [facility] [id number] eClinic 15:30:00 15:30:00 [facility] Med [facility]Work s Urgent Ur[facility] Care [facility] 2020-01-22 2020-01-22 Georgette [facility] [place] - [id number] [facility] 00:00:00 00:00:[address] [facility] Dougie, Medical - Pract ic MD: [email or web address] [facility], [address], [place] [address] , Ph. Results This patient has no known results.
[2020-11-30 21:26] LABS: Urine Blood Negative (Negative); Urine Glucose Negative (Negative); Urine Protein Negative (Negative); Urine pH 6.5 (5.0-7.0)
[2020-11-30 23:26] LABS: Absolute Lymphocytes (CBC) 1.4 K/uL (0.7-4.9); Basophils % 0.6 % (0-1.3); Hematocrit 35.4 % (36.0-45.0); Lymphocytes % 20.3 % (15.3-44.8); RBC Red Blood Cell Count 3.95 M/uL (3.86-4.86)
[2020-11-30 23:44] LABS: ALT/SGPT 23 U/L (12-78); AST/SGOT 12 U/L (15-37); Albumin 3.7 g/dL (3.4-5.0); Alkaline Phosphatase 56 U/L (45-117); BUN Blood Urea Nitrogen 9 mg/dL (7-18); Bicarbonate 24 mmol/L (21-32); Bilirubin Direct < 0.1 mg/dL (0-0.2); Bilirubin Total 0.3 mg/dL (0.2-1.0); Glucose Level 154 mg/dL (74-106); Lipase 135 U/L (73-393); Potassium 3.4 mmol/L (3.5-5.1); Protein, Total 7.1 g/dL (6.4-8.2); Sodium Level 139 mmol/L (136-145)
[2020-12-01 00:03] LABS: Urine Bacteria <20 /HPF (<20); Urine RBC <5 /HPF (NONE SEEN)
[2020-12-01] MEDS ORDERED: FENTANYL CITR 100 MCG/2 ML ONE (00:15)
[2020-12-01] MEDS ORDERED: ONDANSETRON 4 MG/2 ML VIAL ONE (00:15)
[2020-12-01] MEDS ORDERED: NA CHLORIDE 0.9% 1,000 ML ONE (00:16)
--- NOTE | 2020-12-01 01:29 | EDPHYS ---
Physician Documentation [facility] Name: Lizy George Age: 45 yrs Sex: Female : 1975 Arrival Date: 11/30/2020 Time: 21:02 Bed 6 Private MD: MIKE Physician Fermin Lynn HPI: 11/30 21:40 This 45 yrs old Female presents to ER via Ambulatory with complaints of Vaginal cp Pain. 21:40 The patient presents with pelvic pain, the pain is described as constant, burning, with cp associated dyspareunia. 21:40 Onset: The symptoms/episode began/occurred 1 month(s) ago. Associated signs and cp symptoms: Pertinent positives: constipation, cramping, diarrhea, dysuria, urinary frequency, Pertinent negatives: fever, vaginal bleeding, vaginal discharge. Severity of symptoms: in the emergency department the symptoms are unchanged, despite home interventions. The patient is sexually active, reportedly has a single partner, does not use protection during intercourse. The patient's method of control includes nothing. Patient reports taking old antibiotic for past 4 days with no improvement of symptoms. Patient reports when taking Bactrim this past month, symptoms improved but never went away. 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 - Social history:: Smoking status: Patient denies any tobacco usage or history of. ROS: 21:50 Constitutional: Negative for body aches, chills, fever, poor PO intake. cp 21:50 Eyes: Negative for injury, pain, redness, and discharge. cp 21:50 ENT: Negative for ear pain, sore throat, difficulty swallowing, difficulty handling secretions. 21:50 Cardiovascular: Negative for chest pain, edema, palpitations. 21:50 Respiratory: Negative for cough, shortness of breath, wheezing. 21:50 Abdomen/GI: Negative for abdominal pain, nausea, vomiting, and diarrhea, constipation. 21:50 : Positive for pelvic pain, urinary frequency, burning with urination, Negative for flank pain, vaginal bleeding, vaginal discharge. 21:50 Skin: Negative for cellulitis, rash. 21:50 Neuro: Negative for altered mental status, headache, weakness. 21:50 All other systems are negative. Exam: 21:55 Constitutional: The patient appears in no acute distress, alert, awake, non-toxic, well cp developed, well nourished, uncomfortable. 21:55 Head/Face: Normocephalic, atraumatic. cp 21:55 Eyes: Periorbital structures: appear normal, Conjunctiva: normal, no exudate, no injection, Sclera: no appreciated abnormality, Lids and lashes: appear normal, bilaterally. 21:55 ENT: External ear(s): are unremarkable, Nose: is normal, Mouth: Lips: moist, Oral mucosa: moist, Posterior pharynx: Airway: no evidence of obstruction, patent. 21:55 Chest/axilla: Inspection: normal. 21:55 Cardiovascular: Rate: normal, Rhythm: regular. 21:55 Respiratory: the patient does not display signs of respiratory distress, Respirations: normal, no use of accessory muscles, no retractions, labored breathing, is not present, Breath sounds: are clear throughout, no decreased breath sounds. 21:55 Abdomen/GI: Inspection: abdomen appears normal, Bowel sounds: active, all quadrants, Palpation: soft, in all quadrants, moderate abdominal tenderness, in the suprapubic area, rebound tenderness, is not appreciated, involuntary guarding, is not appreciated. 21:55 Back: CVA tenderness, is absent. 21:55 Skin: cellulitis, is not appreciated, no rash present. 22:15 : Pelvic Exam: External exam: is normal, Speculum exam: no bleeding is noted, cp cervicitis present, os that is closed, bimanual exam reveals cervical motion tenderness, uterine tenderness, no adnexa tenderness or masses bilaterally, discharge, clear. Vital Signs: 21:07 BP 119 / 78; Pulse 97; Resp 18 S; Temp 98.2(O); Pulse Ox 99% on R/A; Weight 62.6 kg ca1 (R); Height 5 ft. 3 in. (160.02 cm) (R); Pain 8/10; 23:00 BP 106 / 71; Pulse 79; Resp 16 S; Pulse Ox 100% ; ad5 12/01 00:00 BP 132 / 86; Pulse 72; Resp 16; Pulse Ox 100% on R/A; jb4 01:45 BP 128 / 72; Pulse 76; Resp 18; Pulse Ox 99% on R/A; jb4 11/30 21:07 Body Mass Index 24.45 (62.60 kg, 160.02 cm) ca1 MDM: 11/30 21:49 Patient medically screened. paul 23:00 Differential diagnosis: appendicitis, cervicitis, ovarian cyst, pelvic inflammatory cp disease, urinary tract infection, vaginosis. 12/01 01:28 Data reviewed: vital signs, nurses notes, lab test result(s), radiologic studies, CT cp scan. 01:28 Counseling: I had a detailed discussion with the patient and/or guardian regarding: the cp historical points, exam findings, and any diagnostic results supporting the discharge/admit diagnosis, lab results, radiology results, the need for outpatient follow up, an OB/Gyne specialist, to return to the emergency department if symptoms worsen or persist or if there are any questions or concerns that arise at home. Response to treatment: the patient's symptoms have markedly improved after treatment, and as a result, I will discharge patient. Special discussion: Based on the patient's Hx, exam, and Dx evaluation, there is no indication for emergent surgery or inpatient Tx. It is understood by the patient/guardian that if the Sx's persist or worsen they need to return immediately for re-evaluation. 11/30 21:25 Order name: Urine Dipstick-Ancillary; Complete Time: 21:47 EDMS 11/30 21:47 Interpretation: Reviewed. 11/30 21:25 Order name: Urine --Ancillary (enter results) tt3 11/30 21:26 Order name: Urine --Ancillary; Complete Time: 23:41 EDGA 11/30 22:44 Order name: Basic Metabolic Panel 11/30 22:44 Order name: CBC with Diff; Complete Time: 23:41 11/30 23:41 Interpretation: Normal except: HCT 35.4. 11/30 22:44 Order name: Hepatic Function; Complete Time: 00:34 cp 12/01 00:34 Interpretation: Normal except: AST 12. cp 11/30 22:44 Order name: Lipase; Complete Time: 00:34 cp 12/01 00:35 Interpretation: Within normal limits: LIP 135. cp 11/30 22:44 Order name: Urine Microscopic Only; Complete Time: 00:34 cp 12/01 00:34 Interpretation: Reviewed. 11/30 22:45 Order name: Basic Metabolic Panel; Complete Time: 00:34 EDMS 12/01 00:34 Interpretation: Normal except: K 3.4; CL 111; GLUC 154; GFR 78; CA 8.4. 11/30 22:45 Order name: GC (GONORR/CHLAMYDIA) Probe 11/30 22:45 Order name: Wet Prep; Complete Time: 00:34 cp 12/01 00:34 Interpretation: Reviewed. 11/30 23:42 Order name: CT Abd/Pelvis - IV Contrast Only 12/01 01:21 Order name: Urine Culture 11/30 21:25 Order name: Urine Test (obtain specimen); Complete Time: 21:25 tt3 11/30 21:25 Order name: Urine Dipstick-Ancillary (obtain specimen); Complete Time: 21:25 tt3 11/30 22:44 Order name: IV Saline Lock; Complete Time: 23:25 11/30 22:44 Order name: Labs collected and sent; Complete Time: 23:25 11/30 22:45 Order name: Pelvic Exam Setup; Complete Time: 23:00 cp Administered Medications: 01:40 Discontinued: NS 0.9% 1000 ml IV at 1 bolus Per protocol; 1000 mL bolus 4 11/30 23:43 CANCELLED (Physician Discretion): Ketorolac 15 mg IVP once 12/01 00:05 Drug: Zofran (Ondansetron) 4 mg Route: IVP; Site: left antecubital; jb4 00:30 Follow up: Response: No adverse reaction jb4 00:05 Drug: NS 0.9% 1000 ml Route: IV; Rate: 1 bolus; Site: left antecubital; jb4 01:40 Follow up: Response: No adverse reaction; IV Status: Order to discontinue infusion; IV jb4 Intake: 500ml 00:07 Drug: fentaNYL (PF) 25 mcg Route: IVP; Site: left antecubital; jb4 00:30 Follow up: Response: No adverse reaction; No change in condition; Pain is decreased; jb4 RASS: Alert and Calm (0) 01:40 Drug: Rocephin (cefTRIAXone) 1 grams Route: IV; Rate: calculated rate; Site: right jb4 antecubital; 01:40 Follow up: Response: Medication administered at discharge.; IV Status: Completed jb4 infusion; IV Intake: 10ml 01:40 Drug: Doxycycline 100 mg Route: PO; jb4 01:40 Follow up: Response: Medication administered at discharge. jb4 01:40 Drug: metroNIDAZOLE 500 mg Route: PO; jb4 01:40 Follow up: Response: Medication administered at discharge. jb4 Disposition: 07:05 Co-signature as Attending Physician, Fermin Lynn MD I agree with the assessment and paul plan of care. Disposition Summary: 12/01/20 01:28 Discharge Ordered Location: Home cp Problem: new cp Symptoms: have improved cp Condition: Stable cp Diagnosis - Female pelvic inflammatory disease, unspecified cp Followup: cp - With: Dottie Gastelum MD - When: 1 week - Reason: Recheck today's complaints Discharge Instructions: - Discharge Summary Sheet cp - Uterine Fibroids cp - Pelvic Inflammatory Disease cp - Pelvic Pain, Female cp Forms: - Medication Reconciliation Form cp - Thank You Letter cp - Antibiotic Education cp - Prescription Opioid Use cp Prescriptions: - Zofran 4 mg Oral Tablet - take 1 tablet by ORAL route every 12 hours As needed; 20 tablet; Refills: 0, cp Product Selection Permitted - Doxycycline Hyclate 100 mg Oral Tablet - take 1 tablet by ORAL route every 12 hours; 20 tablet; Refills: 0, Product cp Selection Permitted - Metronidazole 500 mg Oral Tablet - take 1 tablet by ORAL route every 8 hours; 30 tablet; Refills: 0, Product cp Selection Permitted - Tramadol 50 mg Oral Tablet - take 1 tablet by ORAL route every 8 hours as needed; 12 tablet; Refills: 0, cp Product Selection Permitted Signatures: Dispatcher [employer] Fermin Zuniga MD MD cha Page, Corey, PA PA cp Jerardo Carter RN RN jb4 Hannah Freire RN RN ca1 Teddy Marquez tt3 Corrections: (The following items were deleted from the chart) 11/30 23:43 23:43 Ketorolac 15 mg IVP once ordered. cp cp
--- NOTE | 2020-12-01 01:29 | ER ---
Nurse's Notes [facility] Name: Lizy George Age: 45 yrs Sex: Female : 1975 Arrival Date: 11/30/2020 Time: 21:02 Bed 6 Private MD: Diagnosis: Female pelvic inflammatory disease, unspecified Presentation: 11/30 21:07 Chief complaint: Patient states: Been having UTI for a month now. Been taking ca1 Antibiotics, no relief. C/O suprapubic pain, R flank pain. burning with urination. Denies fever. Coronavirus screen: Client denies travel out of the [place] in the last 14 days. At this time, the client does not indicate any symptoms associated with coronavirus-19. Ebola Screen: Patient negative for fever greater than or equal to 101.5 degrees Fahrenheit, and additional compatible Ebola Virus Disease symptoms Patient denies exposure to infectious person. Patient denies travel to an Ebola-affected area in the 21 days before illness onset. No symptoms or risks identified at this time. Initial Sepsis Screen: Does the patient meet any 2 criteria? No. Patient's initial sepsis screen is negative. Does the patient have a suspected source of infection? No. Patient's initial sepsis screen is negative. Risk Assessment: Do you want to hurt yourself or someone else? Patient reports no desire to harm self or others. Onset of symptoms was November 30, 2020. 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 - Social history:: Smoking status: Patient denies any tobacco usage or history of. Screenin:34 Abuse screen: Denies threats or abuse. Denies injuries from another. Nutritional ad5 screening: No deficits noted. Tuberculosis screening: No symptoms or risk factors identified. Fall Risk None identified. Assessment: 22:31 General: Appears in no apparent distress. Behavior is calm, cooperative, appropriate ad5 for age. Pain: Complains of pain in R flank, suprapubic pain. Neuro: No deficits noted. Level of Consciousness is awake, alert, obeys commands, Oriented to person, place, time, situation, Appropriate for age. Cardiovascular: No deficits noted. Capillary refill < 3 seconds Patient's skin is warm and dry. Pulses are all present. Respiratory: Airway is patent Respiratory effort is even, unlabored, Respiratory pattern is regular, symmetrical. GI: Abdomen is flat, Bowel sounds present X 4 quads. Abd is soft and non tender. GI: Reports lower abdominal pain. : Reports burning with urination, pain in right in suprapubic area flank(s), urinary frequency. Derm: Skin is pink, warm \T\ dry. Musculoskeletal: No deficits noted. No signs and/or symptoms reported regarding the musculoskeletal system. 23:45 Reassessment: No changes from previously documented assessment. Patient and/or family ad5 updated on plan of care and expected duration. Pain level reassessed. Patient is alert, oriented x 3, equal unlabored respirations, skin warm/dry/pink. 12/01 00:26 Reassessment: Patient appears in no apparent distress at this time. Patient and/or jb4 family updated on plan of care and expected duration. Pain level reassessed. Patient is alert, oriented x 3, equal unlabored respirations, skin warm/dry/pink. 01:45 Reassessment: Patient appears in no apparent distress at this time. Patient and/or jb4 family updated on plan of care and expected duration. Pain level reassessed. Patient is alert, oriented x 3, equal unlabored respirations, skin warm/dry/pink. Vital Signs: 11/30 21:07 BP 119 / 78; Pulse 97; Resp 18 S; Temp 98.2(O); Pulse Ox 99% on R/A; Weight 62.6 kg ca1 (R); Height 5 ft. 3 in. (160.02 cm) (R); Pain 8/10; 23:00 BP 106 / 71; Pulse 79; Resp 16 S; Pulse Ox 100% ; ad5 12/01 00:00 BP 132 / 86; Pulse 72; Resp 16; Pulse Ox 100% on R/A; jb4 01:45 BP 128 / 72; Pulse 76; Resp 18; Pulse Ox 99% on R/A; jb4 11/30 21:07 Body Mass Index 24.45 (62.60 kg, 160.02 cm) ca1 ED Course: 11/30 21:02 Patient arrived in ED. ag3 21:10 Triage completed. ca1 21:10 Arm band placed on right wrist. ca1 21:47 Fermin Faith PA is PHCP. cp 21:47 Fermin Lynn MD is Attending Physician. cp 21:47 Kirby Lewis is Primary Nurse. ad5 22:34 Patient has correct armband on for positive identification. Bed in low position. Call ad5 light in reach. Side rails up X 1. Pulse ox on. NIBP on. Door closed. Noise minimized. Warm blanket given. 23:00 Initial lab(s) drawn, by me, sent to lab. Inserted saline lock: 20 gauge in left ad5 antecubital area, using aseptic technique. Blood collected. 12/01 00:34 CT Abd/Pelvis - IV Contrast Only In Process Unspecified. EDMS 01:27 Dottie Gastelum MD is Referral Physician. cp 01:45 Assist provider with bone marrow aspiration. IV discontinued, intact, bleeding jb4 controlled, No redness/swelling at site. Pressure dressing applied. Administered Medications: 01:40 Discontinued: NS 0.9% 1000 ml IV at 1 bolus Per protocol; 1000 mL bolus jb4 11/30 23:43 CANCELLED (Physician Discretion): Ketorolac 15 mg IVP once cp 12/01 00:05 Drug: Zofran (Ondansetron) 4 mg Route: IVP; Site: left antecubital; jb4 00:30 Follow up: Response: No adverse reaction jb4 00:05 Drug: NS 0.9% 1000 ml Route: IV; Rate: 1 bolus; Site: left antecubital; jb4 01:40 Follow up: Response: No adverse reaction; IV Status: Order to discontinue infusion; IV jb4 Intake: 500ml 00:07 Drug: fentaNYL (PF) 25 mcg Route: IVP; Site: left antecubital; jb4 00:30 Follow up: Response: No adverse reaction; No change in condition; Pain is decreased; jb4 RASS: Alert and Calm (0) 01:40 Drug: Rocephin (cefTRIAXone) 1 grams Route: IV; Rate: calculated rate; Site: right jb4 antecubital; 01:40 Follow up: Response: Medication administered at discharge.; IV Status: Completed jb4 infusion; IV Intake: 10ml 01:40 Drug: Doxycycline 100 mg Route: PO; jb4 01:40 Follow up: Response: Medication administered at discharge. jb4 01:40 Drug: metroNIDAZOLE 500 mg Route: PO; jb4 01:40 Follow up: Response: Medication administered at discharge. jb4 Intake: 01:40 IV: 500ml; Total: 500ml. jb4 01:40 IV: 10ml; Total: 510ml. jb4 Outcome: 01:28 Discharge ordered by MD. cp 01:45 Discharged to home ambulatory, with family. jb4 01:45 Condition: stable 01:45 Discharge instructions given to patient, Instructed on discharge instructions, follow up and referral plans. medication usage, Demonstrated understanding of instructions, follow-up care, medications, Prescriptions given X 4. 02:06 Patient left the ED. jb4 Signatures: Dispatcher [employer] EDMS Fermin Faith PA PA cp Bryson, James, RN RN jbAdriana Corado ag3 Hannah Freire RN RN ca1 Davidson, Andrea ad5
[2020-12-01] MEDS ORDERED: metroNIDAZOLE 500 MG TABLET ONE (01:50)
[2020-12-01] MEDS ORDERED: DOXYCYCLINE 100 MG CAP PO ONE (01:51)
[2020-12-01] MEDS ORDERED: CEFTRIAXONE/SWI 1gm 1 GM/10 ML SYR ONE (01:51)
[2020-12-01 02:28] VITALS: TEMP 98.2
[2020-12-01 02:38] VITALS: BP 128/72; O2SAT 99
--- NOTE | 2020-12-01 16:28 | RAD REPORT ---
EXAM DESCRIPTION: CT Abdomen and Pelvis COMPARISON: CT abdomen pelvis July 11, 2018 CLINICAL HISTORY: Lower abdomen pain TECHNIQUE: CT of the abdomen and pelvis was acquired with IV contrast material. Coronal and sagitt al reconstructions were obtained. Automated exposure control was utilized on this examination as a dose lowering technique. FINDINGS: Lung bases: Clear. Liver: A subcentimeter right hepatic hypodensity likely represents a benign cyst or hemangioma. Gallbladder and biliary: Normal gallbladder. Unremarkable biliary tree. Pancreas: Normal. Spleen: Normal. Adrenal glands: Normal adrenal glands. Kidneys: Normal kidneys Stomach and Small Bowel: The stomach and small bowel are normal. Urinary bladder: Normal. Uterus and Adnexa: A 3.9 x 3.4 cm subserosal uterine fundal fibroid has minimally increased in size f rom 2019 and measures 3.9 x 3.4 x 3.6 cm with multiple coarse calcifications. There is a 1.6 cm perip herally enhancing cystic structure of the right adnexa which appears similar to 2019. No follow-up im aging is recommended for this lesion. Colon and Appendix: The colon is unremarkable. Appendectomy. Retroperitoneum and lymph nodes: Normal. Vascular: Normal. Peritoneal cavity: No ascites or free air. Musculoskeletal and soft tissues: Soft tissues are unremarkable. No aggressive bone lesions. No com pression fracture. IMPRESSION: 1. No acute intra-abdominal abnormality. 2. Redemonstrated uterine fibroid and small right adnexal cystic structure. Electronically signed by: Dudley Sepulveda MD 12/01/2020 12:53 AM CDT Due to temporary technical issues with the PACS/Fluency reporting system, reports are being signed by the in house radiologists without review as a courtesy to insure prompt reporting. The interpreting radiologist is fully responsible for the content of the report.
== END 2020-12-01 02:06 | disposition home or self-care (01) ==
LOC: ER 20:59
DX: N73.9 Female pelvic inflammatory disease, unspecified (principal)
CPT/HCPCS: 36415; 74177; 80048; 80076; 81003; 81015; 81025; 83690; 85025; 87086; 87088; 87210; 87490; 87590; 99285; J0696; Q9967

== ENCOUNTER 2020-12-24 10:22 | Emergency (ER) | payer SELFPAY ==
--- OUTSIDE RECORDS SUMMARY | 2020-12-24 10:25 | XMS REPORT | Continuity of Care Document ---
:1975 Author Organization [facility] t Address [address] [place] [address] Care Team Providers Name Role Phone Unavailable Unavailable Unavailable Problems Condition Condition Condition Status Onset Resolution Last Treating Co mments Source Name Details Category Date Date Treatment Clinician Date Contact Contact Problem Active [facility] dermatitis Dermatitis 9-13 Fa merlin 00:00: [...] Start Date Stop Date Source Never Smoker [facility] Family P ractice Medications Ordered Filled Start Stop Current Ordering Indication Dosage Frequency Signature Comments Components Source Medication Medication Date Date Medication? Clinician (SIG) Name Name Zolpidem Yes Stephanie Quigley 1 tablet Me moria Tartrate 5-08 at bedtime l 02:01: [facility] 24 PrednisoLON Yes Stephanie Quigley 1 tablet [facility] E 5-08 in the l 02:01: morning [facility] 24 with food or milk Trazodone Yes Stephanie Quigley 1 tablet M emoria HCl 5-07 at bedtime l 00:00: as needed [facility] 00 prednisone prednisone No 2 Q1D prednisone [facility] 20 mg 20 mg 20 mg Family tablet Take tablet Take tablet Practic 2 tablets 2 tablets Take 2 e every day every day tablets by oral by oral every day route with route with by oral meals for 6 meals for 6 route with days. days. meals for 6 days. triamcinolo triamcinolo No triamcinol [facility] ne ne one Family acetonide acetonide [...] Family Practic e hydroxyzine hydroxyzine No hydroxyzin [facility] HCl 25 mg HCl 25 mg e HCl 25 F amily tablet take tablet take mg tablet Practic 1 or 2 tabs 1 or 2 tabs take 1 or e po qhs prn po qhs prn 2 tabs po itching itching qhs prn itching permethrin permethrin No permethrin [facility] 5 % topical 5 % topical [...] THEN WASHING WASHING REMOVE BY THOROUGH WASHING Immunizations Ordered Immunization Filled Immunization Date Status Commen ts Source Name Name COVID19 LISSA 2020-09-18 Completed [facility] VACCINE 00:00:00 [facility] Vital Signs Vital Name Observation Time Observation Value Comments Source BP Diastolic 2020-01-22 00:00:00 80 mm[Hg] [facility] Practice Height 2020-01-22 00:00:00 64.5 [in_i] [facility] BMI (Body Mass 2020-01-22 00:00:00 21.1 kg/m2 [facility] e Family Index) Practice BP Systolic 2020-01-22 00:00:00 110 mm[Hg] [facility] Body Weight 2020-01-22 00:00:00 125 [lb_av] [facility] Height 2020-09-18 20:30:00 Hilda Sam Heart Rate 2020-09-18 20:30:00 Hilda Sam Diastolic (mm Hg) 2020-09-18 20:30:00 Mem aamir Sam Systolic (mm Hg) 2020-09-18 20:30:00 Bowen dejesus [facility] Weight 2020-09-18 20:30:00 [facility] Procedures Procedure Date / Time Performed Performing Clinician [facility] jl Appendectomy 2017-05-15 00:00:00 [facility] Panchito ly Practice Encounters Start End Encounter Admission Attending Care Care Encounter Source Date/Time Date/Time Type Type Clinicians Facility Department ID 2020-12-24 Outpatient [id number] Memoria 10:25:04 [id number] [facility] [id number] 2020-09-19 2020-09-19 Outpatient Juan Rojas [id number] eClinic 09:17:00 09:17:00 [facility] 2020-09-19 2020-09-19 Outpatient Juan Rojas [id number] eClinic 09:12:00 09:12:00 [facility] 2020-09-18 2020-09-18 Outpatient Juan Martinez Family [id number] eClinic 15:30:00 15:30:00 [facility] Urgent [facility] 2020-01-22 2020-01-22 Ge[facility] [place] - [id number] [facility] 00:00:00 00:00:[address] [facility] Dougie, Medical - Pract nakul MD: [id number] [email or web address] [facility] [address], [address], [place] [address] , Ph. Results This patient has no known results.
--- NOTE | 2020-12-24 11:58 | ER ---
Nurse's Notes [facility] Name: Lizy George Age: 45 yrs Sex: Female : 1975 Arrival Date: 12/24/2020 Time: 10:46 Bed 26 Private MD: Diagnosis: Vaginal Pain Presentation: 12/24 11:02 Chief complaint: Patient states: Urine infection since November 04, 4 different jl7 antibiotics, reports vaginal pain and burning. Coronavirus screen: Client denies travel out of the [place] in the last 14 days. At this time, the client does not indicate any symptoms associated with coronavirus-19. Ebola Screen: No symptoms or risks identified at this time. Initial Sepsis Screen: Does the patient meet any 2 criteria? No. Patient's initial sepsis screen is negative. Does the patient have a suspected source of infection? No. Patient's initial sepsis screen is negative. Risk Assessment: Do you want to hurt yourself or someone else? Patient reports no desire to harm self or others. Onset of symptoms was November 04, 2020. 11:02 Method Of Arrival: Ambulatory [facility] 11:02 Acuity: TRAMAINE 3 jl7 Triage Assessment: 11:46 General: Appears uncomfortable. 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 - Social history:: Smoking status: Patient denies any tobacco usage or history of. Screenin:46 Abuse screen: Denies threats or abuse. Nutritional screening: No deficits noted. ap3 Tuberculosis screening: No symptoms or risk factors identified. Fall Risk None identified. Assessment: 11:44 General: Behavior is cooperative, restless. Pain: Complains of pain in groin. Neuro: ap3 Level of Consciousness is awake, alert, obeys commands, Oriented to person, place, time, situation, Appropriate for age Moves all extremities. Gait is steady, Speech is normal. Cardiovascular: Denies chest pain. Respiratory: Airway is patent Respiratory effort is even, unlabored, Respiratory pattern is regular, symmetrical. GI: Bowel sounds present X 4 quads. Abd is soft and non tender X 4 quads. : Denies any difficulty or pain upon urinaion. : Reports vaginal ulcers. EENT: No signs and/or symptoms were reported regarding the EENT system. Derm: No signs and/or symptoms reported regarding the dermatologic system. Vital Signs: 11:02 BP 104 / 71; Pulse 115; Resp 17; Temp 98; Pulse Ox 99% ; Weight 58.97 kg; Pain 10/10; jl7 ED Course: 10:46 Patient arrived in ED. mr 10:59 [facility] Armstrong [facility]C [facility] kb 10:59 Martin Arana MD is Attending Physician. kb 11:06 Triage completed. jl7 11:06 Arm band placed on right wrist. jl7 11:14 Doris Waggoner, RN is Primary Nurse. ap3 11:46 Patient has correct armband on for positive identification. Bed in low position. Call ap3 light in reach. Side rails up X2. Adult w/ patient. Pulse ox on. NIBP on. Door closed. Noise minimized. 11:50 Assist provider with pelvic exam: Set up pelvic tray. Performed by Colette DELGADO. 12:30 Wound culture swab sent to lab. jl7 12:30 Patient did not have IV access during this emergency room visit. jl7 Administered Medications: 12:35 Drug: [place] (HYDROcodone-acetaminophen) 10 mg-325 mg 1 tabs Route: PO; ss Outcome: 11:57 Discharge ordered by MD. kb 12:59 Discharged to home ambulatory, with significant other. jl7 12:59 Condition: stable 12:59 Discharge instructions given to patient, family, Instructed on discharge instructions, follow up and referral plans. Demonstrated understanding of instructions, follow-up care. 12:59 Patient left the ED. jl7 Signatures: Coltete Armstrong FNP-C FNP-Lesia Janett Hopper Julia Morales RN RN ss Kenia Bailon RN RN jlDoris Carbone RN RN ap3
--- NOTE | 2020-12-24 11:58 | EDPHYS ---
Physician Documentation [facility] Name: Lizy George Age: 45 yrs Sex: Female : 1975 Arrival Date: 12/24/2020 Time: 10:46 Bed 26 Private MD: ED Physician Martin Arana HPI: 12/24 12:55 This 45 yrs old Female presents to ER via Ambulatory with complaints of Abdominal Pain. kb 12:55 This 45 yrs old Female presents to ER via Ambulatory with complaints of Vaginal Pain. kb 12:55 The patient presents with vaginal pain. Onset: The symptoms/episode began/occurred October kb 2020. Modifying factors: The symptoms are alleviated by nothing, the symptoms are aggravated by pressure, urinating. Associated signs and symptoms: Pertinent positives: vaginal pain. Severity of symptoms: At their worst the symptoms were moderate, in the emergency department the symptoms are unchanged. The patient has not experienced similar symptoms in the past. The patient has not recently seen a physician. Pt reports vaginal pain that started on November 04. Reports ulcerations to area. pain worse with movement, palpation, urinating. 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 States she has been on 4 rounds of antibiotics including macrobid, bactrim, a cephalosporin, doxycycline and flagyl with no relief. 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 . 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 - Social history:: Smoking status: Patient denies any tobacco usage or history of. ROS: 17:30 Positive for vaginal discharge, vaginal pain and ulceration. kb 17:30 Constitutional: Negative for fever, chills, and weight loss. 17:30 All other systems are negative. Exam: 16:39 Constitutional: This is a well developed, well nourished patient who is awake, alert, kb and in no acute distress. Head/Face: Normocephalic, atraumatic. ENT: Moist Mucous membranes Respiratory: Respirations even and unlabored. No increased work of breathing, no retractions or nasal flaring. Abdomen/GI: Soft, non-tender. No distention Skin: Warm, dry with normal turgor. Normal color. MS/ Extremity: Pulses equal, no cyanosis. Neurovascular intact. Full, normal range of motion. Neuro: Awake and alert, GCS 15, oriented to person, place, time, and situation. Moves all extremities. Normal gait. Psych: Awake, alert, with orientation to person, place and time. Behavior, mood, and affect are within normal limits. 16:39 : Pelvic Exam: External exam: reveals ulcerations on external genitalia, white discharge, the nurse was present for the exam. Vital Signs: 11:02 BP 104 / 71; Pulse 115; Resp 17; Temp 98; Pulse Ox 99% ; Weight 58.97 kg; Pain 10/10; jl7 MDM: 11:11 Patient medically screened. 11:55 Data reviewed: vital signs, nurses notes. Data interpreted: Pulse oximetry: on room air kb is 99 %. Interpretation: normal. Counseling: I had a detailed discussion with the patient and/or guardian regarding: the historical points, exam findings, and any diagnostic results supporting the discharge/admit diagnosis, the need for outpatient follow up, an OB/Gyne specialist, to return to the emergency department if symptoms worsen or persist or if there are any questions or concerns that arise at home. 12/24 11:55 Order name: Wound Culture kb Administered Medications: 12:35 Drug: [place] (HYDROcodone-acetaminophen) 10 mg-325 mg 1 tabs Route: PO; ss Disposition: 17:01 Co-signature as Attending Physician, Martin Arana MD I agree with the assessment and kdr plan of care. Disposition Summary: 12/24/20 11:57 Discharge Ordered Location: Home kb Condition: Stable kb Diagnosis - Vaginal Pain kb Followup: kb - With: Emergency Department - When: As needed - Reason: Worsening of condition Followup: kb - With: Private Physician - When: 2 - 3 days - Reason: Recheck today's complaints, Continuance of care, Re-evaluation by your physician Forms: - Medication Reconciliation Form kb - Thank You Letter kb - Antibiotic Education kb - Prescription Opioid Use kb Signatures: Dispatcher [employer] EDColette Castaneda AUTO TUNE UP MECHANIC-C AUTO TUNE UP MECHANIC-Ckb Martin Arana MD MD kdr Julia Moarles RN RN ss Kenia Bailon RN RN jl7
[2020-12-24] MEDS ORDERED: HYDROCODONE/APAP 10/325 TAB ONE (12:44)
[2020-12-24 13:06] VITALS: BP 104/71; TEMP 98; O2SAT 99
== END 2020-12-24 12:59 | disposition home or self-care (01) ==
LOC: ER 10:22
DX: R10.2 Pelvic and perineal pain (principal)
CPT/HCPCS: 87070; 87077; 87186; 87205; 99284